=== PATIENT | male | born 1950 | race Caucasian/White ===

== ENCOUNTER 2020-01-09 16:40 | Inpatient (IN) ==
[2020-01-09 17:24] LABS: Hematocrit 44.5 % (37.5-50.1); Immature Granulocytes % 1.7 % (0-4); Mean Corpuscular Volume 91.9 fL (83.0-100.0); Nucleated Red Blood Cells 0.2 /100 WBC (0); Red Blood Count 4.84 M/mcL (4.19-5.50); Red Cell Distribution Width 13.2 % (11.5-14.5)
[2020-01-09 17:26] LABS: Basophils # 0.1 K/mcL (0.0-0.2); Basophils % 0.9 %; Eosinophils % 0.4 %; Hemoglobin 14.8 g/dL (12.9-16.9); Lymphocytes # 1.7 K/mcL (0.6-4.6); Lymphocytes % 18.6 %; Mean Corpuscular HGB Conc 33.3 g/dL (31.6-35.5); Mean Corpuscular Hemoglobin 30.6 pg (28.0-33.3); Mean Platelet Volume 11.6 fL (9.4-12.4); Monocytes # 0.6 K/mcL (0.0-1.3); Monocytes % 6.8 %; Neutrophils # 6.4 K/mcL (1.6-8.9); Platelet Count 118 K/mcL (140-400); Segmented Neutrophils % 71.6 %; White Blood Count 8.9 K/mcL (4.3-11.1)
[2020-01-09 17:30] LABS: INR 1.1; Prothrombin Time 12.4 Seconds (9.4-12.1)
[2020-01-09 17:33] LABS: Activated Partial Thrombo Time 32.7 Seconds (26.0-36.0)
[2020-01-09 17:42] LABS: Alanine Aminotransferase 29 Units/L (7-52); Albumin 4.1 g/dL (3.5-5.7); Albumin/Globulin Ratio 1.5 (1.1-2.2); Alkaline Phosphatase 64 Units/L (34-104); Aspartate Amino Transferase 32 Units/L (13-39); BUN/Creatinine Ratio 16 (6-26); Bilirubin,Total 0.5 mg/dL (0.3-1.0); Blood Urea Nitrogen 13 mg/dL (8-23); Carbon Dioxide 27 mEq/L (23-29); Chloride 102 mEq/L (98-107); Globulin 2.8 g/dL (2.4-3.5); Glucose 106 mg/dL (70-105); Osmolality,Calculated 285 (280-300); Potassium 3.8 mEq/L (3.5-5.1); Sodium 137 mEq/L (136-145); Total Protein 6.9 g/dL (6.4-8.9); eGFR For African Americans > 60 (> 60); eGFR For Non-African Americans > 60 (> 60)
[2020-01-09] MEDS ORDERED: *HR* FentaNYL (PF) 100 MCG/2 ML VIAL IVP ONE (18:08)
[2020-01-09] MEDS ORDERED: Naloxone 0.4 MG/ML INJ IVP PRN (18:49)
[2020-01-10] MEDS ORDERED: Naloxone 0.4 MG/ML INJ IVP PRN ×2 (00:06→20:26)
[2020-01-10 00:35] LABS: Hematocrit 48.5 % (37.5-50.1); Hemoglobin 15.7 g/dL (12.9-16.9); Mean Corpuscular HGB Conc 32.4 g/dL (31.6-35.5)
[2020-01-10 00:36] LABS: INR 1.1; Prothrombin Time 12.5 Seconds (9.4-12.1)
[2020-01-10 00:37] LABS: Basophils # 0.1 K/mcL (0.0-0.2); Basophils % 0.5 %; Eosinophils # 0.1 K/mcL (0.0-0.6); Eosinophils % 1.3 %; Immature Granulocytes % 0.8 % (0-4); Immature Platelets 8.8 % (1.1-6.1); Lymphocytes # 0.9 K/mcL (0.6-4.6); Lymphocytes % 8.5 %; Mean Corpuscular Hemoglobin 30.1 pg (28.0-33.3); Mean Corpuscular Volume 92.9 fL (83.0-100.0); Mean Platelet Volume 11.8 fL (9.4-12.4); Monocytes # 0.6 K/mcL (0.0-1.3); Monocytes % 5.9 %; Neutrophils # 8.5 K/mcL (1.6-8.9); Platelet Count 117 K/mcL (140-400); Red Blood Count 5.22 M/mcL (4.19-5.50); Red Cell Distribution Width 13.2 % (11.5-14.5); White Blood Count 10.2 K/mcL (4.3-11.1)
[2020-01-10 00:51] LABS: Magnesium 1.8 mg/dL (1.6-2.6); Phosphorous 2.5 mg/dL (2.7-4.5)
[2020-01-10 00:52] LABS: BUN/Creatinine Ratio 17 (6-26); Blood Urea Nitrogen 14 mg/dL (8-23); Calcium 9.4 mg/dL (8.6-10.3); Carbon Dioxide 26 mEq/L (23-29); Chloride 102 mEq/L (98-107); Glucose 125 mg/dL (70-105); Osmolality,Calculated 288 (280-300); Potassium 4.2 mEq/L (3.5-5.1); Sodium 138 mEq/L (136-145); eGFR For African Americans > 60 (> 60); eGFR For Non-African Americans > 60 (> 60)
[2020-01-10 01:52] LABS: Bilirubin,Urine Negative (Negative); Blood,Urine Negative (Negative); Clarity,Urine Clear (Clear); Color,Urine Yellow (Yellow); Glucose,Urine (UA) Normal (Normal); Ketones,Urine Trace mg/dL (Negative); Leukocyte Esterase,Urine Small (Negative); Nitrite,Urine Negative (Negative); PH,Urine 8.5 pH Units (5.0-8.0); Protein,Urine 30 mg/dL (Neg-Trace); Specific Gravity,Urine 1.026 (1.010-1.025); Urobilinogen,Urine Normal (Normal)
[2020-01-10 01:53] LABS: Bacteria,Urine None Seen per hpf (None-Few); Hyaline Casts,Urine None Seen per lpf (None-Few); RBC,Urine 0-3 per hpf (0-3); Squamous Epithelial Cell,Urine Few per lpf (None-Few); WBC,Urine 0-3 per hpf (0-3)
[2020-01-10] MEDS ORDERED: Ethanol\\Acetic Acid\\Na Ace\\Ben 1,000 ML IRRIG.SOLN IR ONE (16:31)
[2020-01-10] MEDS ORDERED: Vancomycin 1,000 MG VIAL ONE (16:31)
[2020-01-10] MEDS ORDERED: Ondansetron 4 MG/2 ML VIAL ONE (16:38)
[2020-01-10] MEDS ORDERED: *HR* Rocuronium Bromide 50 MG/5 ML VIAL ONE (16:38)
[2020-01-10] MEDS ORDERED: Lidocaine -MPF 2% 2 ML VIAL ONE (16:38)
[2020-01-10] MEDS ORDERED: Lidocaine -MPF 4% 5 ML AMPUL ONE (16:38)
[2020-01-10] MEDS ORDERED: Dexamethasone 4 MG/ML VIAL ONE (16:38)
[2020-01-10] MEDS ORDERED: *HR* FentaNYL (PF) 100 MCG/2 ML VIAL ONE (16:38)
[2020-01-10] MEDS ORDERED: *HR* Propofol 200 MG/20 ML VIAL IVP ONE (16:39)
[2020-01-10] MEDS ORDERED: EPHEDrine 50 MG/ML VIAL ONE (18:07)
[2020-01-10] MEDS ORDERED: *HR* HYDROMORPHONE 2 MG/ML VIAL ONE (19:04)
[2020-01-10] MEDS ORDERED: *HR* HYDROmorphone (PF) 1 MG/ML SYRINGE IVP PRN (19:19)
[2020-01-10] MEDS ORDERED: *HR* Labetalol 20 MG/4 ML SYRINGE IVP PRN (19:19)
[2020-01-10] MEDS ORDERED: Ondansetron 4 MG/2 ML VIAL IVP PRN (19:19)
[2020-01-10] MEDS ORDERED: Ringers Solution, Lactated 1,000 ML IVC SCH (20:26)
[2020-01-10] MEDS ORDERED: Sennosides/Docusate Sodium TABLET PO SCH (21:00)
[2020-01-10] MEDS ORDERED: Valproic Acid Oral Soln 250 MG/5 ML UDC PO SCH (21:00)
[2020-01-10] MEDS ORDERED: Melatonin 3 MG TABLET PO SCH (21:00)
[2020-01-10] MEDS ORDERED: Famotidine 20 MG TABLET PO SCH (21:00)
[2020-01-10] MEDS: Melatonin 3 MG TABLET PO SCH (22:09)
[2020-01-10] MEDS: Sennosides/Docusate Sodium TABLET PO SCH (22:09)
[2020-01-10] MEDS: Famotidine 20 MG TABLET PO SCH (22:09)
[2020-01-10] MEDS: Valproic Acid Oral Soln 250 MG/5 ML UDC PO SCH (22:10)
[2020-01-11] MEDS: ceFAZolin 2,000 MG in 0.9 % Sodium Chloride 100 ML IVPB SCH ×2 (00:05→11:01)
[2020-01-11 06:20] LABS: Hematocrit 38.3 % (37.5-50.1); Mean Corpuscular HGB Conc 33.2 g/dL (31.6-35.5); Mean Corpuscular Hemoglobin 31.1 pg (28.0-33.3); Mean Corpuscular Volume 93.9 fL (83.0-100.0); Mean Platelet Volume 11.8 fL (9.4-12.4); Platelet Count 112 K/mcL (140-400); Red Blood Count 4.08 M/mcL (4.19-5.50); White Blood Count 9.3 K/mcL (4.3-11.1)
[2020-01-11 06:23] LABS: Hemoglobin 12.7 g/dL (12.9-16.9)
[2020-01-11 06:38] LABS: BUN/Creatinine Ratio 23 (6-26); Blood Urea Nitrogen 17 mg/dL (8-23); Calcium 8.3 mg/dL (8.6-10.3); Carbon Dioxide 26 mEq/L (23-29); Chloride 104 mEq/L (98-107); Glucose 135 mg/dL (70-105); Magnesium 1.8 mg/dL (1.6-2.6); Osmolality,Calculated 286 (280-300); Potassium 4.4 mEq/L (3.5-5.1); Sodium 136 mEq/L (136-145); eGFR For African Americans > 60 (> 60); eGFR For Non-African Americans > 60 (> 60)
[2020-01-11] MEDS ORDERED: Aspirin 81 MG TAB.CHEW PO SCH (09:00)
[2020-01-11] MEDS ORDERED: Cholecalciferol (D-3) 1,000 UNIT (25MCG) TABLET PO SCH (09:00)
[2020-01-11] MEDS ORDERED: Valproic Acid Oral Soln 250 MG/5 ML UDC PO SCH (09:00)
[2020-01-11] MEDS: Cholecalciferol (D-3) 1,000 UNIT (25MCG) TABLET PO SCH (09:41)
[2020-01-11] MEDS: Famotidine 20 MG TABLET PO SCH ×2 (09:41→16:06)
[2020-01-11] MEDS: Aspirin Enteric Coated 325 MG Tablet PO SCH (09:41)
[2020-01-11] MEDS: Valproic Acid Oral Soln 250 MG/5 ML UDC PO SCH ×2 (09:55→21:10)
[2020-01-11] MEDS ORDERED: CefTRIAXone 1,000 MG VIAL IM ONE (11:31)
[2020-01-11] MEDS: *HR* Enoxaparin 30 MG/0.3 ML SYRINGE SQ SCH (17:39)
[2020-01-11] MEDS: Sennosides/Docusate Sodium TABLET PO SCH (21:10)
[2020-01-11] MEDS: Melatonin 3 MG TABLET PO SCH (21:10)
[2020-01-12 01:40] LABS: Hemoglobin 11.9 g/dL (12.9-16.9); Red Cell Distribution Width 13.2 % (11.5-14.5)
[2020-01-12 01:42] LABS: Basophils # 0.1 K/mcL (0.0-0.2); Basophils % 0.7 %; Eosinophils # 0.2 K/mcL (0.0-0.6); Eosinophils % 1.8 %; Hematocrit 36.2 % (37.5-50.1); Immature Granulocytes % 1.1 % (0-4); Immature Platelets 8.2 % (1.1-6.1); Mean Corpuscular HGB Conc 32.9 g/dL (31.6-35.5); Mean Corpuscular Hemoglobin 30.9 pg (28.0-33.3); Mean Platelet Volume 11.8 fL (9.4-12.4); Monocytes # 1.4 K/mcL (0.0-1.3); Monocytes % 14.1 %; Neutrophils # 5.8 K/mcL (1.6-8.9); Platelet Count 115 K/mcL (140-400); Red Blood Count 3.85 M/mcL (4.19-5.50); Segmented Neutrophils % 57.3 %; White Blood Count 10.2 K/mcL (4.3-11.1)
[2020-01-12 01:43] LABS: Lymphocytes # 2.6 K/mcL (0.6-4.6)
[2020-01-12] MEDS: *HR* Enoxaparin 30 MG/0.3 ML SYRINGE SQ SCH ×2 (06:02→17:26)
[2020-01-12] MEDS: Valproic Acid Oral Soln 250 MG/5 ML UDC PO SCH ×2 (08:46→20:38)
[2020-01-12] MEDS: Aspirin Enteric Coated 325 MG Tablet PO SCH (08:48)
[2020-01-12] MEDS: Famotidine 20 MG TABLET PO SCH ×2 (08:49→16:16)
[2020-01-12] MEDS: *HR* Metformin 500 MG TABLET PO SCH (08:50)
[2020-01-12] MEDS: Cholecalciferol (D-3) 1,000 UNIT (25MCG) TABLET PO SCH (08:52)
[2020-01-12] MEDS: Melatonin 3 MG TABLET PO SCH (20:41)
[2020-01-12] MEDS: Sennosides/Docusate Sodium TABLET PO SCH (20:41)
[2020-01-13] MEDS: *HR* Enoxaparin 30 MG/0.3 ML SYRINGE SQ SCH (05:28)
[2020-01-13] MEDS: Aspirin Enteric Coated 325 MG Tablet PO SCH (08:29)
[2020-01-13] MEDS: Famotidine 20 MG TABLET PO SCH (08:29)
[2020-01-13] MEDS: Cholecalciferol (D-3) 1,000 UNIT (25MCG) TABLET PO SCH (08:30)
[2020-01-13] MEDS: Valproic Acid Oral Soln 250 MG/5 ML UDC PO SCH (08:30)
[2020-01-13] MEDS: *HR* Metformin 500 MG TABLET PO SCH (08:43)
[2020-01-13 11:29] VITALS: BP 107/64
== END 2020-01-13 12:37 | DRG 469 ==
LOC: 3NENU 16:40 → EMEROOARM 16:40 → 3NENU 19:48 → SUATTDRO 20:33
PROVIDERS: ADMIT Internal Medicine; ATTEND Internal Medicine